=== PATIENT | male | born 1975 | race Native Hawaiian/Other Pacific Islander ===

== ENCOUNTER 2016-12-11 16:52 | Emergency (ER) | payer BC ==
[~2016-12-11] VITALS: Ht 188 cm; Wt 111.1 kg
== END 2016-12-11 18:22 | disposition home or self-care (01) ==
LOC: ED 16:52
DX: M54.5 Low back pain (principal); M51.36 Other intervertebral disc degeneration, lumbar region
CPT/HCPCS: 36415; 96372; 99282; J1885